=== PATIENT | female | born 2000 | race Caucasian/White ===

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

== ENCOUNTER → 2022-01-25 09:15 | Outpatient (BNVA) | payer OTHER, SELFPAY | PROVIDERS: Visit Provider Nurse Practitioner Family | DX: J02.0 Streptococcal pharyngitis (principal); J35.9 Chronic disease of tonsils and adenoids, unspecified | CPT/HCPCS: 87880 ==

== ENCOUNTER → 2023-02-26 14:59 | Outpatient (BNVA) | payer MEDICAID, SELFPAY | PROVIDERS: Referring Provider Family Medicine; Visit Provider Nurse Practitioner Women's Health | DX: Z12.4 Encounter for screening for malignant neoplasm of cervix (principal); Z30.9 Encounter for contraceptive management, unspecified; Z30.017 Encounter for initial prescription of implantable subdermal contraceptive | CPT/HCPCS: 81025; 88175 ==

== ENCOUNTER → 2025-03-07 16:19 | Outpatient (BNVA) | payer SELFPAY | PROVIDERS: Visit Provider Nurse Practitioner Women's Health | DX: Z01.419 Encounter for gynecological examination (general) (routine) without abnormal findings (principal) | CPT/HCPCS: 80053; 82306; 82465; 83036; 83718; 83721; 84443; 85025 ==